=== PATIENT | male | born 1950 | race Caucasian/White ===

== ENCOUNTER 2019-05-06 21:58 | Emergency (ER) | payer OTHER | END 2019-05-06 23:51 | disposition left against medical advice (07) | LOC: JERFT 21:58 → JER 23:51 ==

== ENCOUNTER 2019-05-10 14:21 | Emergency (ER) | payer OTHER ==
--- NOTE | 2019-05-10 14:37 | PDOC ---
Rapid Medical Evaluation Time Seen by Provider: 05/10/19 14:34 Medical Evaluation: Allergies Allergy/AdvReac Type Severity Reaction Status Date / Time No Known Allergies Allergy Verified 05/10/19 14:33 05/10/19 14:34 Pt presents to the ER for a rash to his abdomen since 05/02/19 after doing yard work. States that prolonged periods in the sun make it worse Exam: macular rashes to the arms, back, and abdomen Orders: nothing Pt to proceed to the ER for further evaluation Discharge Disposition - Diagnosis Rash - Referrals - Patient Instructions - Post Discharge Activity
[2019-05-10 14:38] VITALS: BP 154/85; PULSE 71; TEMP 98; BMI 24.3
--- NOTE | 2019-05-10 14:55 | PDOC ---
History of Present Illness - General Chief Complaint: Rash Stated Complaint: RASH Time Seen by Provider: 05/10/19 14:34 - History of Present Illness Initial Comments: 05/10/19 14:51 69-year-old male without comorbidities presents for evaluation of a rash which has been increasing over the last week. First noticed after doing some work outside. He describes as restless itchy no systemic symptoms. Past History - Past Medical History Allergies/Adverse Reactions: Allergies Allergy/AdvReac Type Severity Reaction Status Date / Time No Known Allergies Allergy Verified 05/10/19 14:33 Home Medications: Ambulatory Orders Dm/P-Ephed/Acetaminoph/Doxylam [Nyquil D Cold & Flu Liquid] 295 ml PO ASDIR predniSONE [Deltasone -] 40 mg PO DAILY #10 tablet 10/20/15 Clobetasol Propionate [Temovate] 30 gm TP BID #1 oint...g. 05/10/19 Methylprednisolone [Medrol Dose Vicente] 4 mg PO ASDIR #21 tablet 05/10/19 COPD: No Thyroid Disease: No - Immunization History Immunization Up to Date: No - Suicide/Smoking/Psychosocial Hx Smoking History: Former smoker Have you smoked in the past 12 months: No If you are a former smoker, when did you quit?: 12 yrs ago Information on smoking cessation initiated: No Hx Alcohol Use: No Drug/Substance Use Hx: No Substance Use Type: None Review of Systems - Review of Systems Constitutional: No: Fever Integumentary: Yes: Pruritus, Rash *Physical Exam - Vital Signs Last Vital Signs Temp Pulse Resp BP Pulse Ox 98 F 71 18 154/85 98 05/10/19 14:34 05/10/19 14:34 05/10/19 14:34 05/10/19 14:34 05/10/19 14:34 - Physical Exam Comments: 05/10/19 14:51 HEAD: NC/AT EYES: Conjuntiva clear Ears: Canals and TM's normal NOSE: No d/c THROAT: Moist mucous membrances, oral pharanx clear, uvula midline NECK: Supple without adenopathy CARDIAC: S1 S2 LUNGS: CTA Full and Equal breath sounds ABDOMEN: Soft NT ND MS: Full ROM in all joints without edema NEUROLOGIC: No gross sensory or motor deficits, NVID SKIN: Normal color and temperature there are raised wheals on the anterior medial aspects of both upper extremities as well as the chest and abdomen. Medical Decision Making - Medical Decision Making 05/10/19 14:52 Medrol Dosepak and Benadryl for ALLERGIC contact dermatitis. Follow-up with dermatology. *DC/Admit/Observation/Transfer Diagnosis at time of Disposition: Rash, Contact dermatitis - Discharge Dispostion Disposition: HOME Condition at time of disposition: Stable Decision to Admit order: No - Referrals Referrals: Ivette Negrete MD [Staff Physician] - - Patient Instructions Printed Discharge Instructions: Contact Dermatitis, DI for Contact Dermatitis Additional Instructions: Please start the steroid pack today and take as directed. He may take over-the- counter Benadryl as directed for itching. He may continue with calamine lotion. Return to the emergency room for worsening symptoms. Follow-up with dermatology in 1-2 days without fail for further evaluation and treatment options. I've also given you a topical steroid cream for itching. Only use this twice a day only as needed. - Post Discharge Activity
== END 2019-05-10 15:05 | disposition home or self-care (01) ==
LOC: JERFT 14:21
DX: R21 Rash and other nonspecific skin eruption (principal); Z87.891 Personal history of nicotine dependence; L25.9 Unspecified contact dermatitis, unspecified cause
CPT/HCPCS: 99281-25

== ENCOUNTER 2022-05-23 06:46 | Emergency (ER) | payer OTHER ==
[2022-05-23 07:23] VITALS: BP 169/76; PULSE 68; RESP 16; TEMP 97.7; BMI 25.3
[2022-05-23 08:44] LABS: EPI CELLS 3 /uL (0-25.1); HYALINE CASTS 0 /uL (0-3.1); PH,URINE 6.5 (5.0-8.0); URINE APPEARANCE CLEAR; URINE BACTERIA 3 /uL (0-1359); URINE BILIRUBIN NEGATIVE (NEGATIVE); URINE COLOR YELLOW; URINE GLUCOSE (UA) NEGATIVE (NEGATIVE); URINE KETONE NEGATIVE (NEGATIVE); URINE LEUK ESTERASE NEGATIVE (NEGATIVE); URINE NITRITE NEGATIVE (NEGATIVE); URINE PROTEIN 1+ (NEGATIVE); URINE RBC 17 /uL (0-23.9); URINE UROBILINOGEN 0.2 mg/dL (0.2-1.0); URINE WBC 10 /uL (0-25.8)
[2022-05-23 08:50] LABS: HEMATOCRIT 44.7 % (35.4-49); HEMOGLOBIN 15.4 GM/dL (11.7-16.9); MCH 30.6 pg (25.7-33.7); MCHC 34.5 g/dl (32.0-35.9); MEAN CELL VOLUME 88.8 fl (80-96); MEAN PLT VOLUME 9.4 fl (7.5-11.1); PLATELET COUNT 286 10^3/uL (134-434); RBC 5.03 M/mm3 (4.00-5.60); RDW 13.7 % (11.9-15.9); WHITE BLOOD COUNT 10.6 K/mm3 (4.0-10.0)
[2022-05-23 09:01] LABS: BLOOD UREA NITROGEN 15.6 mg/dL (7-18)
[2022-05-23 09:04] LABS: CREATININE 0.9 mg/dL (0.55-1.3)
[2022-05-23 09:05] LABS: TOT PROT 7.1 g/dl (6.4-8.2)
[2022-05-23 11:11] LABS: ANISOCYTOSIS 0; MACROCYTOSIS 0; PLATELET ESTIMATE NORMAL
== END 2022-05-23 10:54 | disposition home or self-care (01) ==
LOC: JER 06:46
DX: M25.512 Pain in left shoulder (principal)
CPT/HCPCS: 0241U-QW; 36415; 70450-TC; 72040-TC; 72100-TC-FY; 80053; 81003; 84484; 85025; 87086; 93005; 93010; 99285-25

== ENCOUNTER 2023-11-14 19:30 | Emergency (ER) | payer OTHER ==
[2023-11-14 19:40] VITALS: BP 169/117; PULSE 93; RESP 18; TEMP 97.5; BMI 23.9
[2023-11-14 20:29] LABS: EPI CELLS 1 /uL (0-25.1); HYALINE CASTS 0 /uL (0-3.1); PH,URINE 6.5 (5.0-8.0); URINE APPEARANCE CLEAR; URINE BACTERIA 5 /uL (0-1359); URINE BILIRUBIN NEGATIVE (NEGATIVE); URINE COLOR YELLOW; URINE GLUCOSE (UA) NEGATIVE (NEGATIVE); URINE KETONE NEGATIVE (NEGATIVE); URINE LEUK ESTERASE NEGATIVE (NEGATIVE); URINE NITRITE NEGATIVE (NEGATIVE); URINE PROTEIN TRACE (NEGATIVE); URINE RBC 22 /uL (0-23.9); URINE UROBILINOGEN 0.2 mg/dL (0.2-1.0); URINE WBC 3 /uL (0-25.8)
== END 2023-11-14 20:55 | disposition home or self-care (01) ==
LOC: JER 19:30
PROC: 0T2BX0Z Change Drainage Device in Bladder, External Approach (ICD-10-PCS; principal; 2023-11-14)
DX: R35.0 Frequency of micturition (principal); R10.30 Lower abdominal pain, unspecified
CPT/HCPCS: 51702; 81003; 87086; 99283-25

== ENCOUNTER 2023-11-16 10:31 | Emergency (ER) | payer OTHER ==
[2023-11-16 10:38] VITALS: BP 154/75; PULSE 82; RESP 18; TEMP 97.7; BMI 24.3
== END 2023-11-16 12:11 | disposition home or self-care (01) ==
LOC: JERFT 10:31
DX: Z46.6 Encounter for fitting and adjustment of urinary device (principal)
CPT/HCPCS: 99283-25

== ENCOUNTER 2023-11-20 02:46 | Emergency (ER) | payer OTHER ==
[2023-11-20 02:52] VITALS: BP 143/71; PULSE 72; RESP 18; TEMP 98; BMI 23.6
[2023-11-20] MEDS ORDERED: LIDOCAINE HCL 2% JELLY 11 ML TP ONE (03:09)
[2023-11-20 04:07] LABS: BASO % 0.3 % (0-2.0); EOS % 1.1 % (0-4.5); HEMATOCRIT 42.2 % (35.4-49); HEMOGLOBIN 14.4 GM/dL (11.7-16.9); LYMPH % 6.2 % (8-40); MCH 30.8 pg (25.7-33.7); MCHC 34.2 g/dl (32.0-35.9); MEAN PLT VOLUME 9.3 fl (7.5-11.1); MONO % 10.3 % (3.8-10.2); NEUT % 82.1 % (42.8-82.8); PLATELET COUNT 176 10^3/uL (134-434); RBC 4.69 M/mm3 (4.00-5.60); RDW 13.8 % (11.9-15.9); WHITE BLOOD COUNT 12.9 K/mm3 (4.0-10.0)
[2023-11-20 04:15] LABS: EPI CELLS 1 /uL (0-25.1); HYALINE CASTS 1 /uL (0-3.1); PH,URINE 8.5 (5.0-8.0); URINE APPEARANCE TURBID; URINE BACTERIA >9,000 /uL (0-1359); URINE BILIRUBIN 1+ (NEGATIVE); URINE COLOR DK YELLOW; URINE GLUCOSE (UA) NEGATIVE (NEGATIVE); URINE KETONE NEGATIVE (NEGATIVE); URINE LEUK ESTERASE 3+ (NEGATIVE); URINE NITRITE POSITIVE (NEGATIVE); URINE PROTEIN 2+ (NEGATIVE); URINE RBC 300 /uL (0-23.9); URINE WBC 2943 /uL (0-25.8)
[2023-11-20 04:26] LABS: CALCIUM 8.9 mg/dL (8.5-10.1)
[2023-11-20 04:27] LABS: ALBUMIN 3.6 g/dl (3.4-5.0); BLOOD UREA NITROGEN 18.8 mg/dL (7-18)
[2023-11-20 04:30] LABS: CREATININE 1.1 mg/dL (0.55-1.3)
[2023-11-20 04:31] LABS: BILIRUBIN,TOTAL 1.8 mg/dL (0.2-1)
[2023-11-20 04:32] LABS: TOT PROT 6.7 g/dl (6.4-8.2)
[2023-11-20] MEDS ORDERED: SULFAMETHOXAZOLE/TRIMETHOPRIM 800MG/160MG D.S. TABLET ONE (04:52)
[2023-11-20] MEDS: SULFAMETHOXAZOLE/TRIMETHOPRIM 800MG/160MG D.S. TABLET PO ONE (05:01)
== END 2023-11-20 05:08 | disposition home or self-care (01) ==
LOC: JER 02:46
DX: N39.0 Urinary tract infection, site not specified (principal); N12 Tubulo-interstitial nephritis, not specified as acute or chronic; R35.0 Frequency of micturition; R10.9 Unspecified abdominal pain
CPT/HCPCS: 36415; 80053; 81003; 85025; 87086; 87186; 99283-25

== ENCOUNTER 2023-11-20 19:11 | Emergency (ER) | payer OTHER ==
[2023-11-20 19:22] VITALS: BP 146/70; PULSE 82; RESP 20; TEMP 98.8; BMI 23.8
[2023-11-20] MEDS ORDERED: TAMSULOSIN HCL 0.4 MG CAP ONE (20:48)
[2023-11-20] MEDS: TAMSULOSIN HCL 0.4 MG CAP PO ONE (21:18)
== END 2023-11-20 21:24 | disposition home or self-care (01) ==
LOC: JER 19:11
DX: R33.9 Retention of urine, unspecified (principal); R35.0 Frequency of micturition
CPT/HCPCS: 99283-25